=== PATIENT | female | born 1945 | race Caucasian/White ===

== ENCOUNTER → 2017-07-10 | Outpatient (CLI) | payer OTHER ==
[~2017-07-10] MED LIST: AMBIEN 5 MG TABL5 M1 PO; APAP650; APAP650 PO; ASPIRIN325 PO; BAYER CHEWABLE81 MG PO; BIOTIN1 M1 PO; BIOTIN1 MG; CALCIUM 600 +1 EAC1 PO; CLOPIDOGREL75 MG PO; COLACE100 MG PO; COZAAR 50 MG TA50 M1 PO; EFFIENT10 MG PO; FEMHRT 0.5 MG-1 EACH PO; FISH OIL 1,001000 M2 PO; FLONASE 0.05%50 MCG NASAL; GLUCOSAMINE CH1 EA10 PO; HARD NAILS2500 MCG PO; HYDROCHLOROTHIA25 M2 PO; IMDUR 30 MG TAB30 M1 PO; LIPITOR10 MG; LIPITOR40 MG PO; LOSARTAN-HCTZ1 EACH PO; LOSARTIN/HCTZ PO; PRILOSEC 10MG C10 M1; PRILOSEC 20 MG20 MG PO; PROBIOTIC1 EAC1 PO; PROTONIX40 M1 PO; RANEXA500 MG PO; TOPROL XL25 MG PO; TYLENOL325 MG PO; VITAMIN B-12500 MCG PO; VITAMIN C100 MG; VITAMIN C500 M1 PO; VITAMIN D1000 UNI1; VITAMIN D32000 UNI1 PO; VITAMINC500 PO; ZOCOR20 MG PO
== END ==
LOC: NUC 07-03 07:17
DX: I25.10 Atherosclerotic heart disease of native coronary artery without angina pectoris (principal)